=== PATIENT | male | born 1985 | race African-American/Black ===

== ENCOUNTER 2023-09-22 03:26 | Emergency (ER) | payer OTHER, BC, SELFPAY ==
[2023-09-22] VITALS (11 sets, daily range): BP systolic 164; BP diastolic 84; PULSE 75–111; RESP 15–25; TEMP 36.2; O2SAT 98–100
--- NOTE | ~2023-09-22 | XR_ITS ---
EXAMINATION: XR chest 1V portable DATE: 09/22/2023 04:41 INDICATION: Chest pain TECHNIQUE: frontal view of the chest was obtained. COMPARISON: None FINDINGS: The lungs are clear with no focal airspace opacities, pulmonary edema, pleural effusion or pneumothor ax. The cardiomediastinal silhouette is normal. Visualized bones and soft tissues are unremarkable. IMPRESSION: 1. No acute cardiopulmonary disease. Reviewed, dictated and finalized at location A. [facility]
--- NOTE | 2023-09-22 03:53 | ECG_ITS ---
Measurements Intervals [place] Rate: 77 P: 69 [place]: 152 QRS: 68 QRSD: 120 T: 57 QT: 385 QTc: 437 Interpretive Statements SINUS RHYTHM WITH SINUS ARRHYTHMIA INSIGNIFICANT Q-WAVES ANTEROLATERAL LEADS BORDERLINE ECG NO PREVIOUS ECG AVAILABLE FOR COMPARISON Electronically Signed On 09-22-2023 11:57:26 WAITER WAITRESS by Calvin Chacon M.D.
--- NOTE | 2023-09-22 04:52 | ED.GENADULT ---
HPI - General Adult General Chief complaint: Extremity Problem,Nontraumatic Stated complaint: OUTSIDE FOR HOURS, LEG PAIN Time Seen by Provider: 09/22/23 03:45 History of Present Illness HPI narrative: patient 38-year-old gentleman who presents to emergency department chief complaint of being outside for hours and having leg pain the patient also states that he has had chest pain. The patient does have history of schizophrenia and reports that he does have a questionable history of heart disease that he was seen at another hospital in another city. The patient reports that he is in the emergency department because he was no longer allowed to stay at the police station while it was raining outside. Review of Systems Review of Systems: A 10 system review of systems was completed on the patient and is negative except for what is stated in the HPI. Nursing and ancillary documentation was reviewed. [facility] Social History Social History Substance use type: unknown Exam Narrative: GENERAL: Well-appearing, well-nourished, and in no acute distress. HEAD: Normocephalic, atraumatic. EYES: PERRLA and EOMI. ENT: Nares clear, no rhinorrhea or epistaxis. Mucous membranes moist. NECK: Supple. CHEST: Clear to auscultation. No respiratory distress. HEART: Regular rate and rhythm. No murmur heard. Normal peripheral pulses. ABDOMEN: Soft, nontender, nondistended, normal active bowel sounds. EXTREMITIES: Normal range of motion. No edema. SKIN: Warm, dry, no rash. NEURO: No focal deficits. Alert and oriented x3. PSYCH: Normal mood and affect. Course Vital Signs Vital signs: Vital Signs Temperature 36.2 C L 09/22/23 03:24 Pulse Rate 78 09/22/23 03:24 Respiratory Rate 17 09/22/23 03:24 Blood Pressure 164/84 H 09/22/23 03:24 Pulse Oximetry 98 09/22/23 03:24 Oxygen Delivery Room Air 09/22/23 03:24 Temperature 36.2 C L 09/22/23 03:24 Pulse Rate 75 09/22/23 05:45 Respiratory Rate 15 09/22/23 05:45 Blood Pressure 164/84 H 09/22/23 03:24 Pulse Oximetry 100 09/22/23 05:45 Oxygen Delivery Room Air 09/22/23 04:27 Medical Decision Making MDM Narrative Medical decision making narrative: differential diagnosis includes schizophrenia, homelessness, ACS, dysrhythmia the patient was observed in the emergency department EKG showed no acute ischemic changes laboratory studies are within normal limits. The patient is not suicidal or homicidal Vital Signs Vital Signs: Vital Signs Temperature 36.2 C L 09/22/23 03:24 Pulse Rate 78 09/22/23 03:24 Respiratory Rate 17 09/22/23 03:24 Blood Pressure 164/84 H 09/22/23 03:24 Pulse Oximetry 98 09/22/23 03:24 Oxygen Delivery Room Air 09/22/23 03:24 Temperature 36.2 C L 09/22/23 03:24 Pulse Rate 75 09/22/23 05:45 Respiratory Rate 15 09/22/23 05:45 Blood Pressure 164/84 H 09/22/23 03:24 Pulse Oximetry 100 09/22/23 05:45 Oxygen Delivery Room Air 09/22/23 04:27 Lab Data 09/22/23 04:50 09/22/23 04:50 Labs: Lab Results 09/22/23 09/22/23 Range/Units 04:50 06:03 WBC 8.2 (4.5-10.0) K/mm3 RBC 4.64 (4.6-6.20) M/mm3 Hgb 14.2 (14.0-18.0) g/dL Hct 43.2 (42.0-52.0) % MCV 93.1 (80-100) fl MCH 30.6 (26-34) pg MCHC 32.9 (32-36) g/dl RDW 12.7 (11.5-14.5) % Plt Count 262 (150-375) k/mm3 MPV 9.1 (7.4-10.4) fl Immature Gran % (Auto) 0.4 (0-0.5) % Neut % (Auto) 72.3 (45.5-73.1) % Lymph % (Auto) 18.9 (18.3-44.2) % [place] % (Auto) 7.1 (2.6-8.5) % Eos % (Auto) 0.9 (0-4.4) % Baso % (Auto) 0.4 (0.2-1.2) % Lymph # (Auto) 1.55 (0.9-3.2) K/mm3 [place] # (Auto) 0.6 (0.1-0.6) K/mm3 Eos # (Auto) 0.1 (0-0.3) K/mm3 Baso # (Auto) 0.0 (0.0-0.1) K/mm3 Abs Immat Gran (auto) 0.03 (0.00-0.031) K/mm3 Absolute Neuts (auto) 5.9 (1.3-6.7) K/mm3 Absolute Nuc
[2023-09-22 05:01] LABS: Basophils Percent Auto 0.4 % (0.2-1.2); Eosinophils Absolute Auto 0.1 K/mm3 (0-0.3); Eosinophils Percent Auto 0.9 % (0-4.4); Hematocrit 43.2 % (42.0-52.0); Hemoglobin 14.2 g/dL (14.0-18.0); Immature Granulocyte Absolute 0.03 K/mm3 (0.00-0.031); Immature Granulocyte Percent A 0.4 % (0-0.5); Lymphocytes Absolute Auto 1.55 K/mm3 (0.9-3.2); Lymphocytes Percent Auto 18.9 % (18.3-44.2); Mean Corpuscular HGB Conc 32.9 g/dl (32-36); Mean Corpuscular Hemoglobin 30.6 pg (26-34); Mean Corpuscular Volume 93.1 fl (80-100); Mean Platelet Volume 9.1 fl (7.4-10.4); Monocytes Absolute Auto 0.6 K/mm3 (0.1-0.6); Monocytes Percent Auto 7.1 % (2.6-8.5); Neutrophils Absolute Auto 5.9 K/mm3 (1.3-6.7); Neutrophils Percent Auto 72.3 % (45.5-73.1); Platelet Count Result 262 k/mm3 (150-375); Red Blood Count 4.64 M/mm3 (4.6-6.20); Red Cell Distribution Width 12.7 % (11.5-14.5); White Blood Count 8.2 K/mm3 (4.5-10.0)
[2023-09-22 05:11] LABS: INR 0.9; Prothrombin Time 12.5 Seconds (11.1-14.7)
[2023-09-22 05:30] LABS: Alanine Aminotransferase 25 U/L (6-50); Albumin Level 4.3 g/dL (3.5-5.1); Alkaline Phosphatase 73 U/L (38-126); Anion Gap 9 mmol/L (8-16); Aspartate Amino Transferase 28 U/L (17-59); Bilirubin,Total 0.5 mg/dL (0.2-1.3); Blood Urea Nitrogen 12 mg/dL (9-20); Calcium 9.2 mg/dL (8.4-10.2); Carbon Dioxide 24 mmol/L (22-30); Chloride 105 mmol/L (98-107); Estimated CRCL calculation 147 ml/min; Estimated Glomerular Filt Rate > 60; Glucose 107 mg/dL (65-110); Lipase 74 U/L (23-300); Magnesium 2.1 mg/dL (1.6-2.3); Potassium 3.8 mmol/L (3.4-5.0); Sodium 138 mmol/L (137-145)
[2023-09-22 05:31] LABS: Acetaminophen < 10 ug/mL (10-30); Ethanol < 10 mg/dL (<10); Salicylate < 1.0 mg/dL (2-20)
[2023-09-22 05:37] LABS: Influenza A QL RT-PCR Negative (Negative); Influenza B QL RT-PCR Negative (Negative); RSV RNA, RT-PCR Negative (Negative); SARS-CoV-2 RNA PCR Negative (Negative)
[2023-09-22 05:42] LABS: Troponin I < 0.012 ng/mL (0.000-0.034)
[2023-09-22 06:34] LABS: Troponin I < 0.012 ng/mL (0.000-0.034)
== END 2023-09-22 07:15 | disposition home or self-care (01) ==
PROVIDERS: Emergency Provider Emergency Medicine
DX: R07.9 Chest pain, unspecified (principal); F20.9 Schizophrenia, unspecified; Z11.52 Encounter for screening for COVID-19; R94.31 Abnormal electrocardiogram [ECG] [EKG]
CPT/HCPCS: 36415; 71045; 80053; 80307; 83690; 83735; 84443; 84484; 85025; 85610; 85730; 87637; 93005; 99284